=== PATIENT | female | born 1960 | race Caucasian/White ===

== ENCOUNTER 2021-04-21 17:18 | Emergency (ER) | payer BC ==
--- OUTSIDE RECORDS SUMMARY | 2021-04-21 17:22 | XMS REPORT | Continuity of Care Document ---
:1960 Author Organization [facility] t Address [address] [place] [address] Care Team Providers Name Role Phone Shona Luis MD Primary Care Physician Tonya STONE Attending Clinician Unavailable Venkata KU Attending Clinician SHONA LUIS Attending Clinician Unavailable Shona Luis MD Attending Clinician Rad Lewis MD Attending Clinician Payers Payer Name Policy Type Policy Number Effective Date Expiration Date Amber LAWRENCE [employer] [id number] Problems Condition Condition Condition Status Onset Resolution Last Treating Co mments Source Name Details Category Date Date Treatment Clinician Date Environmen Environmen Disease Active [facility] jere and jere and 5 College seasonal seasonal 00:00: of allergies allergies 00 Medi shilo e Panic Panic Disease Active [facility] disorder disorder 06-23 Colleg e 00:00: of 00 Medicin e Diverticul Diverticul Disease Active 2013-02 [facility] osis osis 0-20 College 00:00: of 00 Medicin e Agoraphobi Agoraphobi Disease Active [facility] a with a with 05 College panic panic 00:00: of attacks attacks 00 Medicin e Diplopia Diplopia Disease Active Noello r 05 College 00:00: of 00 Medicin e GERD GERD Disease Active [facility] (gastroeso (gastroeso 10-10 Co llege phageal phageal 00:00: of reflux reflux 00 Medicin disease) disease) e Insomnia Insomnia Disease Active [facility] 9-05 [place] 00:00: of 00 Medicin e Migraine Migraine Disease Active [facility] 905 [place] 00:00: of 00 Medicin e Vertigo Vertigo Disease Active 2006-02 [facility] 2-18 [place] 00:00: of 00 Medicin e Allergies, Adverse Reactions, Alerts Allergy Allergy Status Severity Reaction(s) Onset Inactive Treating Comm ents Source Name Type Date Date Clinician Amitript Propensi Active aggressiv Mabie nancy yline ty to 04-16 e [place] adverse 00:00: behavior of reaction 00 Medicin s to e drug Atenolol Propensi Active Throat [facility] ty to 04-16 tightness [place] [facility] adverse 00:00: of reaction 00 Medicin s to e drug Hydromor Propensi Active [facility] phone ty to 06-23 [place] adverse 00:00: of reaction 00 Medicin s to e drug Predniso Propensi Active [facility] ne ty to 06-23 [place] adverse 00:00: of reaction 00 Medicin s to e drug Ciproflo Propensi Active 2012-02 Other [facility] xacin ty to 02-23 reaction( College adverse 00:00: s): of reaction 00 INSOMNIA, Medic in s to VOMITING e drug Hydromor Propensi Active Severe Blood [facility] phone ty to 10-11 pressure [facility] Hcl adverse 00:00: dropped, of reaction 00 vomitting Medic in s to , cold e drug sweat Social History Social Habit Start Date Stop Date Quantity Comments Source Exposure to Not sure [facility] SARS-CoV-2 (event) of Med icine History [facility] Alcohol Frequency of Medi cine History [facility] Alcohol Std Drinks of Med icine History [facility] Alcohol Binge of Medicine Alcohol Comment 2021-03-29 2021-03-29 occasionally [facility] 00:00:00 00:00:00 of Medicine Cigarettes smoked 2021-03-29 2021-03-29 [facility] current (pack per 00:00:00 00:00:00 of Medi cine day) - Reported Cigarette 2021-03-29 2021-03-29 [facility] pack-years 00:00:00 00:00:00 of Medicine Tobacco Comment 2021-03-29 2021-03-29 social smoker for a [facility] 00:00:00 00:00:00 couple of years of Medici ne have not smoked at all since 1995 Tobacco use and 2021-03-29 2021-03-29 Smokeless tobacco [facility] exposure 00:00:00 00:00:00 non-user of Medicine Alcohol intake 2021-03-29 2021-03-29 Current drinker of [facility] 00:00:00 00:00:00 alcohol (finding) of Medi cine History [facility] 2021-02-23 2021-02-23 1 [facility] Physical Activity 00:00:00 00:00:00 of Medi cine DPW History [facility] 2021-02-23 2021-02-23 2 [facility] Physical Activity 00:00:00 00:00:00 of Medi cine MPS History of tobacco 1995-11-06 Smoker [facility] use 00:00:00 of Medicine Sex Ass[birth year] At [birth year] F [facility] Co llege 00:00:00 00:00:00 of Medicine Smoking Status Start Date Stop Date Source Ex-smoker 2021-03-29 00:00:00 2021-03-29 00:00:00 [facility] ollege of Medicine Never smoked tobacco [facility] ege of Medicine Medications Ordered Filled Start Stop Current Ordering Indication Dosage Frequency Signature Comments Components Source Medication Medication Date Date Medication? Clinician (SIG) Name Name Aspirin 81 Yes 81mg Take 81 mg [facility] MG tablet 2-22 by mouth Colleg e 11:28: once. of Medicin e lansoprazol Yes 30mg Take 1 [facility] 2-22 capsule by [place] [facility] (PREVACID) 00:00: mouth of 30 MG 00 daily. Medicin capsule e azelastine Yes 1{spray 1 [place] by [facility] (ASTELIN) 03-29 } Nasal [place] 0.1 % nasal 00:00: route two o f spray 00 times Medicin daily. Use e in each nostril as directed alprazolam Yes [id number] .5mg Take 1 [facility] (XANAX) 0.5 2-09 Tablet by Col lege MG tablet 00:00: mouth of 00 nightly as Medicin needed for e Anxiety. Aspirin Yes 81mg Take 81 mg [facility] (ASPIRIN 02-24 by mouth [place] [facility] 81) 81 MG 11:10: once. of tablet 13 Medicin e nitroglycer Yes [facility] in 02-24 [place] [facility] (NITROSTAT) 00:00: of 0.4 mg 00 Medicin sublingual e tablet nitroglycer 2021- No [id number] .4mg Place 1 [facility] in 02-24 [facility] (NITROSTAT) 00:00: 05:59 under the of 0.4 mg 00 :00 tongue Medicin sublingual once for [address] one tablet under tongue for chest pain. Repeat every 5 minutes for a total of three pills in 15 minutes PRN persistent chest pain. alprazolam 2020-02 Yes [id number] .5mg Take 1 [facility] (XANAX) 0.5 2-07 Tablet by Col lege MG tablet 00:00: mouth of 00 nightly as Medicin needed for e Anxiety. dicyclomine 2020-02 Yes 10mg Take 1 [facility] (BENTYL) 10 2-07 capsule by Co llege MG capsule 00:00: mouth 2 of 00 times Medicin daily as e needed (abdominal cramping). dicyclomine 2020-02 Yes 10mg Take 1 [facility] (BENTYL) 10 2-07 capsule by Co llege MG capsule 00:00: mouth 2 of 00 times Medicin daily as e needed (abdominal cramping). alprazolam 2020-02 Yes [id number] .5mg Take 1 [facility] (XANAX) 0.5 0-13 Tablet by Col lege MG tablet 00:00: mouth of 00 nightly as Medicin needed for e Anxiety. sumatriptan 2020-02 Yes [id number] 100mg Take 1 [facility] (IMITREX) 0-13 Tablet by Colle ge 100 MG 00:00: mouth of tablet 00 daily as Medicin needed for e Migraine. sumatriptan 2020-02 Yes [id number] 100mg Take 1 [facility] (IMITREX) 0-13 Tablet by Colle ge 100 MG 00:00: mouth of tablet 00 daily as Medicin needed for e Migraine. sumatriptan 2020-02 Yes [id number] 100mg Take 1 [facility] (IMITREX) 0-13 Tablet by Colle ge 100 MG 00:00: mouth of tablet 00 daily as Medicin needed for e Migraine. alprazolam 2020- No [id number] .5mg Take 1 [facility] (XANAX) 0.5 4-16 10-13 Tablet by Co llege MG tablet 00:00: 00:00 mouth of 00 :00 nightly as Medicin needed for e Anxiety. DimenhyDRIN 2019- No Take by Sonali bowden ATE 50 MG 8-25 08-25 mouth. College TABS 16:58: 00:00 of 32 :00 Medicin e sumatriptan 2019- No 25mg Take 25 mg [facility] (IMITREX) 8-25 08-25 by mouth Colle ge 25 MG 16:58: 00:00 once as of tablet 11 :00 needed for Medicin Migraine. e dicyclomine Yes 10mg Take 1 Cap [facility] (BENTYL) 10 8-25 by mouth 2 Co llege MG capsule 00:00: times of 00 daily as Medicin needed e (abdominal cramping). Na Yes [SUPREP] [facility] Sulfate-K 8-25 Take as College Sulfate-Mg 00:00: directed. of Sulf 00 Medicin (SUPREP e BOWEL PREP KIT) 17.5-3.13-1 .6 GM/177ML SOLN dicyclomine Yes 10mg Take 1 Cap [facility] (BENTYL) 10 8-25 by mouth 2 Co llege MG capsule 00:00: times of 00 daily as Medicin needed e (abdominal cramping). Na Yes [SUPREP] [facility] Sulfate-K 8-25 Take as College Sulfate-Mg 00:00: directed. of Sulf 00 Medicin (SUPREP e BOWEL PREP KIT) 17.5-3.13-1 .6 GM/177ML SOLN Na 2021- No [SUPREP] [facility] Sulfate-K 8-25 -20 Take as Colleg e Sulfate-Mg 00:00: 00:00 directed. o f Sulf 00 :00 Medicin (SUPREP e BOWEL PREP KIT) 17.5-3.13-1 .6 GM/177ML SOLN sumatriptan 2020- No [id number] 100mg Take 1 Tab [facility] (IMITREX) 8-25 10-13 by mouth Colle ge 100 MG 00:00: 00:00 daily as of tablet 00 :00 needed for Medicin Migraine. e alprazolam Yes [id number] .5mg Take 1 Tab [facility] (XANAX) 0.5 8-18 by mouth Meera ege MG tablet 00:00: nightly as of 00 needed for Medicin Anxiety. e sumatriptan Yes 25mg Take 25 mg [facility] (IMITREX) 3-12 by mouth Colleg e 25 MG 17:54: once as of tablet 56 needed for Medicin Migraine. e DimenhyDRIN Yes Take by Oleg carter ATE 50 MG 3-12 mouth. College TABS 17:54: of 56 Medicin e alprazolam Yes [id number] .5mg Take 1 Tab [facility] (XANAX) 0.5 3-12 by mouth Meera ege MG tablet 00:00: nightly as of 00 needed for Medicin Anxiety. e sumatriptan Yes [id number] 100mg Take 1 Tab [facility] (IMITREX) 3-12 by mouth Colleg e 100 MG 00:00: daily as of tablet 00 needed for Medicin Migraine. e sumatriptan 2020- No [id number] 100mg Take 1 Tab [facility] (IMITREX) 3-12 08-25 by mouth Colle ge 100 MG 00:00: 00:00 daily as of tablet 00 :00 needed for Medicin Migraine. e alprazolam 2020- No .5mg Take 1 Tab [facility] (XANAX) 0.5 7-01 03-12 by mouth Col lege MG tablet 00:00: 00:00 nightly as o f 00 :00 needed for Medicin Sleep or e Anxiety. Immunizations Ordered Immunization Filled Immunization Date Status Commen ts Source Name Name Highlighter 2020-08-21 Completed [facility] SARS-CoV-2 00:00:00 of Medicine Vaccination Highlighter 2020-08-21 Completed [facility] [place] SARS-CoV-2 00:00:00 of Medicine Vaccination Highlighter 2020-08-21 Completed [facility] [place] [facility] SARS-CoV-2 00:00:00 of Medicine Vaccination Vital Signs Vital Name Observation Time Observation Value Comments Source Body weight 2021-03-29 17:24:00 67.132 kg [facility] BMI 2021-03-29 17:24:00 24.63 kg/m2 [facility] Systolic blood 2021-03-29 17:24:00 136 mm[Hg] [facility] Diastolic blood 2021-03-29 17:24:00 84 mm[Hg] [facility] Heart rate 2021-03-29 17:24:00 80 /min [facility] Body height 2021-03-29 17:24:00 165.1 cm [facility] Systolic blood 2021-02-24 15:57:00 128 mm[Hg] [facility] Diastolic blood 2021-02-24 15:57:00 88 mm[Hg] [facility] Heart rate 2021-02-24 15:57:00 77 /min [facility] Respiratory rate 2021-02-24 15:57:00 16 /min [facility] Body height 2021-02-24 15:57:00 162.6 cm [facility] Body weight 2021-02-24 15:57:00 70.308 kg [facility] BMI 2021-02-24 15:57:00 26.61 kg/m2 [facility] Oxygen saturation in 2021-02-24 15:57:00 98 /min [facility] Arterial blood by [facility] Pulse oximetry Systolic blood 2020-11-17 15:57:00 118 mm[Hg] [facility] Diastolic blood 2020-11-17 15:57:00 68 mm[Hg] [facility] Heart rate 2020-11-17 15:57:00 81 /min [facility] Body temperature 2020-11-17 15:57:00 36.33 Saima [facility] Respiratory rate 2020-11-17 15:57:00 18 /min [facility] Body height 2020-11-17 15:57:00 162.6 cm [facility] Body weight 2020-11-17 15:57:00 68.493 kg [facility] [facility] BMI 2020-11-17 15:57:00 25.92 kg/m2 [facility] ollege of [facility] Oxygen saturation in 2020-11-17 15:57:00 98 /min [facility] Arterial blood by Medicine Pulse oximetry Body height 2019-09-30 16:53:00 162.6 cm [facility] Body weight 2019-09-30 16:53:00 65.499 kg [facility] BMI 2019-09-30 16:53:00 24[facility]79 [facility] Sy[facility] blood 2019-04-17 17:50:00 114 mm[Hg] [facility] pressure Medicine Diastolic blood 2019-04-17 17:50:00 80 mm[Hg] [facility] Medicine Heart rate 2019-04-17 17:50:00 70 /min [facility] ollege of [facility] Body temperature 2019-04-17 17:50:00 36.89 Saima [facility] Respiratory rate 2019-04-17 17:50:00 16 /min [facility] Body height 2019-04-17 17:50:00 162.6 cm [facility] ollege of [facility] Body weight 2019-04-17 17:50:00 69.582 kg [facility] olle of [facility] BMI 2019-04-17 17:50:00 26.33 kg/m2 [facility] Oxygen saturation in 2019-04-17 17:50:00 99 /min [facility] Arterial blood by Medicine Pulse oximetry Procedures Procedure Date / Time Performing Clinician Source Performed DIANNE SCOPE 2021-03-29 19:05:00 Lana Stone [facility] ELECTROCARDIOGRAM COMPLETE 2021-02-24 16:00:00 Gloria Hastings [facility] URINE CULTURE 2019-09-30 20:21:00 Jese Lewis [facility] URINALYSIS AUTO W/SCOPE 2019-09-30 20:21:00 Jese Lewis [facility] Plan of Care Planned Activity Planned Date Details Comments Source Future Scheduled 2021-03-29 TETANUS SHOT (ADULT) [facility] n[facility] [employer] Test 13:26:32 [code = TETANUS SHOT of Medi cine (ADULT)] Future Scheduled 2021-03-29 Hepatitis C screening [employer] Test 13:26:32 (procedure) [code = of Medic ine 937339841] Future Scheduled 2021-03-29 Human immunodeficiency [facility] [employer] Test 13:26:32 virus screening of Medicine (procedure) [code = 322503686] Future Scheduled 2021-03-29 Screening for malignant [facility] College Test 13:26:32 neoplasm of cervix of Medici ne (procedure) [code = 678588965] Future Scheduled 2021-03-29 ZOSTER VACCINE (1 of 2) [facility] College Test 13:26:32 [code = ZOSTER VACCINE of Me dicine (1 of 2)] Future Scheduled 2021-03-29 Screening for malignant [facility] College Test 13:26:32 neoplasm of colon of Medicin e (procedure) [code = 618654064] Future Scheduled 2021-03-29 COVID-19 Vaccine (2 - [employer] Test 13:26:32 Booster for Rodney of Medic ine series) [code = COVID-19 Vaccine (2 - Booster for Rodney series)] Future Scheduled 2021-03-29 Screening for malignant [facility] [employer] Test 13:26:32 neoplasm of breast of Medici ne (procedure) [code = 689056260] Future Scheduled 2021-03-07 TETANUS SHOT (ADULT) [facility]ie nancy [employer] Test 20:29:58 [code = TETANUS SHOT of Medi cine (ADULT)] Future Scheduled 2021-03-07 Hepatitis C screening [employer] Test 20:29:58 (procedure) [code = of Medic ine 262002454] Future Scheduled 2021-03-07 [facility] 20:29:58 virus screening of Medicine (procedure) [code = 671337771] Future Scheduled 2021-03-07 Screening for malignant [facility] College Test 20:29:58 neoplasm of cervix of Medici ne (procedure) [code = 629162967] Future Scheduled 2021-03-07 ZOSTER VACCINE (1 of 2) [facility] [employer] Test 20:29:58 [code = ZOSTER VACCINE of Me dicine (1 of 2)] Future Scheduled 2021-03-07 Screening for malignant [facility] College Test 20:29:58 neoplasm of colon of Medicin e (procedure) [code = 647761247] Future Scheduled 2021-03-07 COVID-19 Vaccine (2 - [employer] Test 20:29:58 Booster for Rodney of Medic ine series) [code = COVID-19 Vaccine (2 - Booster for Rodney series)] Future Scheduled 2021-03-07 BMI FOLLOW UP PLAN [employer] Test 20:29:58 [code = BMI FOLLOW UP of Med icine PLAN] Future Scheduled 2021-03-07 Screening for malignant [facility] College Test 20:29:58 neoplasm of breast of Medici ne (procedure) [code = 811140772] Future Scheduled 2021-02-24 EVENT MONITOR [code = 1 Occurrences [facility] [employer] Test 10:44:47 41867] starting of Medicine 02/24/2021 until 05/25/2021 Future Scheduled 2021-02-24 ELECTROCARDIOGRAM [facility] [employer] Test 09:58:29 COMPLETE [code = 81310] of M edicine Diagnostic Test 2021-02-24 MYOCARD PERFUSION - Expected: [employer] Pending 00:00:00 EXERCISE [code = 51041] 02/24/2021, of M edicine Expires: 08/24/2022 Diagnostic Test 2021-02-24 ECHO, COMPLETE [code = Expected: [employer] Pending 00:00:00 32772] 02/24/2021, of Medicine Expires: 08/24/2021 Future Scheduled 2020-11-17 Screening for malignant [facility] College Test 17:11:08 neoplasm of breast of Medici ne (procedure) [code = 110991233] Future Scheduled 2020-11-17 TETANUS SHOT (ADULT) [facility]ie nancy [employer] Test 17:11:08 [code = TETANUS SHOT of Medi cine (ADULT)] Future Scheduled 2020-11-17 Hepatitis C screening [employer] Test 17:11:08 (procedure) [code = of Medic ine 676041114] Future Scheduled 2020-11-17 Human immunodeficiency [facility] [employer] Test 17:11:08 virus screening of Medicine (procedure) [code = 882820026] Future Scheduled 2020-11-17 Screening for malignant [facility] College Test 17:11:08 neoplasm of cervix of Medici ne (procedure) [code = 052511505] Future Scheduled 2020-11-17 ZOSTER VACCINE (1 of 2) [facility] [employer] Test 17:11:08 [code = ZOSTER VACCINE of Me dicine (1 of 2)] Future Scheduled 2020-11-17 Screening for malignant [facility] [employer] Test 17:11:08 neoplasm of colon of Medicin e (procedure) [code = 801617879] Future Scheduled 2020-11-17 BMI FOLLOW UP PLAN [facility] College Test 17:11:08 [code = BMI FOLLOW UP of Med icine PLAN] Future Scheduled 2020-11-17 CBC W/AUTO DIFF WITH Ordered: [facility]ie n[facility] [employer] Test 11:15:39 PLATELETS [code = 11/17/2020 of Medicin e 28905-9] Future Scheduled 2020-11-17 HEMOGLOBIN A1C [code = Ordered: [facility] [employer] Test 11:15:39 4548-4] 11/17/2020 of Medicine Future Scheduled 2020-11-17 LIPID PANEL [code = Ordered: [facility] Test 11:15:39 65360-7] 11/17/2020 of Medicine Future Scheduled 2020-11-17 MRI BRAIN W WO CONTRAST 1 Occurrences [facility] Test 11:15:39 [code = 04246-7] starting of Medicine 11/17/2020 until 11/17/2021 Future Scheduled 2020-11-17 COMPREHENSIVE METABOLIC Ordered: [facility] Test 11:15:38 PANEL [code = 72904-6] 11/17/2020 of Me dicine Diagnostic Test 2020-11-17 MAMMO 3D SCREENING Expected: [facility] Pending 00:00:00 BILATERAL [code = 11/17/2020, of Medicin e 68898] Expires: 05/18/2022 Diagnostic Test 2019-04-17 MAMMO 3D SCREENING Expected: [facility] Pending 00:00:00 BILATERAL [code = 04/17/2019, of Medicin e 76880] Expires: 10/17/2020 Future Scheduled CBC W/AUTO DIFF WITH Ordered: [facility]ie nancy [employer] Test PLATELETS [code = 04/17/2019 of Medicin e 53144-4] Future Scheduled COMPREHENSIVE METABOLIC Ordered: [facility] Test PANEL [code = 93480-2] 04/17/2019 of Me dicine Future Scheduled HEMOGLOBIN A1C [code = Ordered: [facility] [employer] [facility] 4548-4] 04/17/2019 of Medicine Future Scheduled LIPID PANEL [code = Ordered: [employer] [facility] 66028-6] 04/17/2019 of Medicine Future Scheduled TSH + FREE T4 PROFILE Ordered: [employer] Test [code = NOCPT] 04/17/2019 of Medicine Future Scheduled MAMMOGRAM ANNUAL [code [facility] [employer] [employer] Test = MAMMOGRAM ANNUAL] of Medic ine Future Scheduled TETANUS SHOT (ADULT) [employer] n[facility] [employer] Test [code = TETANUS SHOT of Medi cine (ADULT)] Future Scheduled HEPATITIS C SCREENING [employer] Test [code = HEPATITIS C of Medic ine SCREENING] Future Scheduled HIV SCREENING [code = [employer] [facility] HIV SCREENING] of Medicine Future Scheduled CERVICAL CANCER [facility] C ollege Test SCREENING 3 YEAR FOLLOW of M edicine UP [code = CERVICAL CANCER SCREENING 3 YEAR FOLLOW UP] Future Scheduled COLON CANCER SCREENING: [facility] [employer] Test COLONOSCOPY [code = of Medic ine COLON CANCER SCREENING: COLONOSCOPY] Future Scheduled BMI FOLLOW UP PLAN [facility] r College Test [code = BMI FOLLOW UP of Med icine PLAN] Future Scheduled URINE CULTURE [code = [employer] Test 630-4] of Medicine Future Scheduled MAMMOGRAM ANNUAL [code [facility] [employer] [employer] Test = MAMMOGRAM ANNUAL] of Medic ine Future Scheduled TETANUS SHOT (ADULT) [facility] n[facility] [employer] Test [code = TETANUS SHOT of Medi cine (ADULT)] Future Scheduled HEPATITIS C SCREENING [employer] Test [code = HEPATITIS C of Medic ine SCREENING] Future Scheduled HIV SCREENING [code = [employer] Test HIV SCREENING] of Medicine Future Scheduled CERVICAL CANCER [facility] C ollege Test SCREENING 3 YEAR FOLLOW of M edicine UP [code = CERVICAL CANCER SCREENING 3 YEAR FOLLOW UP] Future Scheduled ZOSTER VACCINE (1 of 2) [facility] College Test [code = ZOSTER VACCINE of Me dicine (1 of 2)] Future Scheduled COLON CANCER SCREENING: [facility] College Test COLONOSCOPY [code = of Medic ine COLON CANCER SCREENING: COLONOSCOPY] Future Scheduled CT ABDOMEN PELVIS W 1 Occurrences [facility] n[facility] [employer] Test CONTRAST [code = starting of Medicine 09005-5] 09/30/2019 until 04/29/2020 Future Scheduled COLONOSCOPY W MAC GI 1 Occurrences [employer] Test DEPT [code = 18341] starting of Medic ine 09/30/2019 until 04/01/2020 Encounters Start End Encounter Admission Attending Care Care Encounter Source Date/Time Date/Time Type Type Clinicians Facility Department ID 2021-03-29 2021-03-29 Office LAURA STONE [id number] [facility] 10:56:51 12:44:42 Visit LANA AMBULATOR [id number] College Y 0.2.7.2.686 of [id number] Medi shilo 800 e 2021-03-10 2021-03-10 Outpatient [facility] [id number] [facility] 10:43:30 16:30:31 Colleg e of Medicin e 2021-03-10 2021-03-10 Outpatient [facility] [id number] [facility] 10:41:34 14:47:35 Colleg e of Medicin e 2021-02-24 2021-02-24 Outpatient [facility] [id number] [facility] 11:28:50 14:28:32 Colleg e of Medicin e 2021-02-24 2021-02-24 Office Vanessaamanda [facility] [id number] [facility] 10:00:00 13:40:51 Visit Mahboob AMBULATOR 350.1.13.21 College Y 0.2.7.2.686 of [id number] Medi shilo 375 e 2021-02-09 2021-02-09 Outpatient GIBSON [facility] [id number] [facility] 13:28:45 13:55:08 JRMatias, ZACK Meera ege of Medicin e 2021-01-13 2021-01-13 Outpatient [facility] [id number] [facility] 10:50:34 13:20:57 Colleg e of Medicin e 2020-11-17 2020-11-17 Office Shona [facility] [id number] [facility] 10:54:55 13:35:53 Visit Zack AMBULATOR 350.1.13.21 College Y 0.2.7.2.686 of [id number] Medi shilo 300 e 2019-09-30 2019-09-30 Office LAZARO Lewis [id number] [facility] 11:50:00 16:47:13 Visit Jese Ali AMBULATOR 350.1.13.21 College Y 0.2.7.2.686 of [id number] Medi shilo 325 e 2019-04-17 2019-04-17 Office LAZARO Gibson [id number] [facility] [facility] 12:27:04 12:57:04 Visit Zack [facility]ATOR [id number] [employer] [facility] [id number] of [phone] [facility] 300 e Results Test Description Test Time Test Comments Results Result Comments Source URINALYSIS AUTO W/SCOPE 2019-10-01 09:12:44 Test Item Value Reference Range Interpretation Comme nts COLOR UA (test code = 5778-6) STRAW YELLOW-STRAW CLARITY UA (test code = 5767-9) CLEAR CLEAR SPECIFIC GRAVITY UA (test code 1.005-1.035 L = 5811-5) LEUKOCYTE ESTERASE UA (test NEGATIVE NEGATIVE code = 5799-2) NITRITE UA (test code = 5802-4) NEGATIVE NEGATIVE PH UA (test code = 5803-2) 5.0-9.0 PROTEIN UA (test code = NEGATIVE NEGATIVE 79424-7) GLUCOSE UA (test code = 5792-7) NEGATIVE NEGATIVE KETONES UA (test code = 5797-6) NEGATIVE NEGATIVE UROBILINOGEN UA (test code = <2.0 See_Comment [Automated message] The ) system which [employer] nerated this result transmit greg reference range: <=2.0 M G/DL. The reference range was not used to interpret th is result as normal/abnormal . BILIRUBIN UA (test code = NEGATIVE NEGATIVE 70-3) OCCULT BLOOD UA (test code = TRACE NEGATIVE A 50679-0) WBC UA (test code = 84908-8) See_Comment [Automated message] The system which [employer] nerated this result transmit greg reference range: 0 - 5 / HPF. The reference range was not used to interpret th is result as normal/abnormal . RBC UA (test code = 42691-3) 0-2 See_Comment [Automated message] The system which [employer] nerated this result transmit greg reference range: 0 - 5 / HPF. The reference range was not used to interpret th is result as normal/abnormal . EPITHELIAL CELLS (test code = See_Comment Unless Otherwise 83769-5) Indicated, All Testing Performed At: Clinical Pathology [facility], [address] [place] [address], [place] [address] Laboratory D irector: Chencho Navarro M.D. CLIA Number [id number] Cap Accreditation N o. [id number] [Automated mess age] The system which generated this result transmitted ref erence range: 0 - 10 /HPF. The reference range was not u sed to interpret this result as normal/abnormal . Lab Interpretation (test code = Abnormal 26082-3) [facility]
[2021-04-21] MEDS ORDERED: NA CHLORIDE 0.9% 1,000 ML ONE (18:02)
[2021-04-21] MEDS ORDERED: FAMOTIDINE 20 MG/2 ML VIAL IV ONE (18:02)
[2021-04-21] MEDS ORDERED: KETOROLAC 30 MG/ML INJ ONE (18:02)
[2021-04-21] MEDS ORDERED: ONDANSETRON 4 MG/2 ML VIAL ONE (18:02)
[2021-04-21 18:13] LABS: Urine Blood Trace-intact (Negative); Urine Glucose Negative (Negative); Urine Protein Negative (Negative); Urine Specific Gravity 1.015 (1.005-1.030)
[2021-04-21 18:18] LABS: Absolute Lymphocytes (CBC) 1.5 K/uL (0.7-4.9); Lymphocytes % 12.8 % (15.3-44.8); MPV 7.5 fL (7.6-11.3); RBC Red Blood Cell Count 4.72 M/uL (3.86-4.86)
[2021-04-21 18:37] LABS: Urine Bacteria <20 /HPF (<20); Urine RBC <5 /HPF (NONE SEEN)
[2021-04-21 18:38] LABS: Albumin 3.5 g/dL (3.4-5.0); Bilirubin Total 0.6 mg/dL (0.2-1.0); Potassium 3.8 mmol/L (3.5-5.1); Protein, Total 7.2 g/dL (6.4-8.2)
--- NOTE | 2021-04-21 19:41 | RAD REPORT ---
EXAM DESCRIPTION: CT - Abdomen Pelvis W Contrast - 04/21/2021 6:53 pm CLINICAL HISTORY: ABD PAIN COMPARISON: No comparisons TECHNIQUE: Biphasic, helical CT imaging of the abdomen and pelvis was performed following 100 ml non -ionic IV contrast. No oral contrast administered. All CT scans are performed using dose optimization technique as appropriate and may include automated exposure control or mA/KV adjustment according to patient size. FINDINGS: No suspicious findings in the lung bases. No cardiomegaly or pericardial effusion. Bilater al breast implants are present. Fibrous capsule calcifications are present. Fluid attenuation is seen between the fibrous capsule of the implant capsule of each implant. Implants are not fully imaged. The liver, spleen, and pancreas show no suspicious findings. Gallbladder and biliary tree are also wi thout suspicious finding. Symmetric renal function is seen with no hydronephrosis or suspicious renal mass. No pyelonephritis o r acute parenchymal process. Numerous simple cysts involve the right kidney, largest 6.2 cm in the up per pole. No suspicious characteristics. No adrenal abnormalities. Urinary bladder is contracted limi ting assessment. No uterine or ovarian acute finding. No stomach or small bowel abnormality. No appendicitis findings. From cecum through descending colon there are no acute colon findings. Patient does have diverticulosis. Proximal sigmoid colon shows cir cumferential wall thickening and edema. There is stranding in the adjacent fat. Patient has numerous diverticula in the sigmoid colon. Trace amount of free fluid seen in the dependent portion of the pel vis. No acute rectal finding. At the site of diverticulitis there is no abnormal extraluminal air con firmed. No abscess or other emergent finding. No hernia, mass or bulky lymphadenopathy. No suspicious bony findings. IMPRESSION: Acute sigmoid diverticulitis without extraluminal air or extravasated bowel content. No abscess or other emergent component.
[2021-04-21] MEDS ORDERED: PIPERACIL/TAZO 3.375 GM VIAL IV ONE (20:05)
[2021-04-21] MEDS ORDERED: NA CHLORIDE 0.9% 100 ML IV ONE (20:05)
--- NOTE | 2021-04-21 21:06 | ER ---
Nurse's Notes [facility] Name: Susan Mcmillan Age: 61 yrs Sex: Female : 1960 Arrival Date: 04/21/2021 Time: 17:22 Bed 25 Private MD: Diagnosis: Diverticulitis of large intestine without perforation or abscess without bleeding Presentation: 04/21 17:29 Chief complaint: Patient states: i have been diagnosed with diverticulitis about 5 tw2 years ago. and i think that is what it is this time. this time seems worse. it goes on the left side and goes around. my stomach feels bloated. nauseated. BM normal yesterday and today. normally the pain starts on my left side but this time its down really low. Coronavirus screen: At this time, the client does not indicate any symptoms associated with coronavirus-19. Ebola Screen: Patient denies travel to an Ebola-affected area in the 21 days before illness onset. 17:29 Method Of Arrival: Ambulatory tw2 17:36 Initial Sepsis Screen: Does the patient meet any 2 criteria? No. Patient's initial tw2 sepsis screen is negative. Does the patient have a suspected source of infection? No. Patient's initial sepsis screen is negative. Risk Assessment: Do you want to hurt yourself or someone else? Patient reports no desire to harm self or others. Onset of symptoms was April 21, 2021. 17:36 Acuity: SUJEY 3 tw2 Triage Assessment: 17:31 General: Appears in no apparent distress. slender, well groomed, Behavior is calm, tw2 cooperative, appropriate for age. Pain: Complains of pain in right lower quadrant and left lower quadrant. GI: Reports lower abdominal pain, nausea. Historical: - Allergies: 17:31 Dilaudid; shaking, vomiting; tw2 - Home Meds: 17:31 alprazolam 0.5 mg Oral tab 1 tab as needed for anxiety [Active]; dicyclomine 10 mg Oral tw2 cap 1 cap as needed [Active]; 17:34 Sumatriptan Sub-Q [Active]; tw2 - PMHx: 17:31 vertigo; tw2 17:34 Migraine; tw2 17:35 Diverticulitis; heart palpitations; tw2 - PSHx: 17:31 section; tw2 - Immunization history:: Adult Immunizations up to date, Client reports receiving the 2nd dose of the Covid vaccine. - Social history:: Smoking status: Patient denies any tobacco usage or history of. Screenin:16 Abuse screen: Denies threats or abuse. Denies injuries from another. Nutritional ld1 screening: No deficits noted. Tuberculosis screening: No symptoms or risk factors identified. Fall Risk None identified. Assessment: 18:16 General: Appears in no apparent distress. uncomfortable, Behavior is calm, cooperative, ld1 appropriate for age. Pain: Complains of pain in abdomen Pain does not radiate. Pain currently is 8 out of 10 on a pain scale. Quality of pain is described as throbbing. Neuro: Level of Consciousness is awake, alert, obeys commands, Oriented to person, place, time, situation. Cardiovascular: Capillary refill < 3 seconds Patient's skin is warm and dry. Respiratory: Airway is patent Respiratory effort is even, unlabored. GI: Abdomen is flat, non-distended, Bowel sounds present X 4 quads. Abd is soft Abdomen is tender to palpation X 4 quads. : No signs and/or symptoms were reported regarding the genitourinary system. EENT: No signs and/or symptoms were reported regarding the EENT system. Derm: No signs and/or symptoms reported regarding the dermatologic system. Musculoskeletal: No signs and/or symptoms reported regarding the musculoskeletal system. 18:47 Reassessment: Patient appears in no apparent distress at this time. No changes from ld1 previously documented assessment. Patient and/or family updated on plan of care and expected duration. Pain level reassessed. Patient states feeling better. Vital Signs: 17:35 BP 149 / 98; Pulse 86; Resp 18; Temp 98.6(TE); Pulse Ox 100% on R/A; Weight 68.49 kg tw2 (R); Height 5 ft. 4 in. (162.56 cm); Pain 8/10; 17:36 Pain 8/10; tw2 20:28 BP 134 / 86; Pulse 79; Resp 20; Pulse Ox 100% on R/A; sf1 17:35 Body Mass Index 25.92 (68.49 kg, 162.56 cm) tw2 ED Course: 17:22 Patient arrived in ED. ds1 17:28 Azeem Mcguire PA is PHCP. cp 17:28 Quintin Gee MD is Attending Physician. cp 17:34 Arm band placed on. tw2 17:36 Triage completed. tw2 17:40 Lucy Faye, RUDDY is Primary Nurse. ld1 18:16 Patient has correct armband on for positive identification. Placed in gown. Bed in low ld1 position. Call light in reach. Side rails up X2. Pulse ox on. NIBP on. Door closed. Noise minimized. Warm blanket given. 18:16 Urine Microscopic Only Sent. ld1 18:16 No provider procedures requiring assistance completed. Inserted saline lock: 20 gauge ld1 in left antecubital area, using aseptic technique. Blood collected. 18:52 CT Abd/Pelvis - IV Contrast Only In Process Unspecified. EDMS 21:06 Attending Physician role handed off by Quintin Gee MD cp 21:06 Eleuterio Shukla MD is Attending Physician. cp 21:37 IV discontinued, intact, bleeding controlled, No redness/swelling at site. Pressure sf1 dressing applied. Administered Medications: 18:15 Drug: NS 0.9% 500 ml Route: IV; Rate: bolus; Site: left antecubital; ld1 18:42 Follow up: Response: No adverse reaction; IV Status: Completed infusion; IV Intake: ld1 500ml 18:15 Drug: Ketorolac 15 mg Route: IVP; Site: left antecubital; ld1 18:42 Follow up: Response: Pain is decreased ld1 18:16 Drug: Pepcid (famotidine) 20 mg Route: IVP; Site: left antecubital; ld1 18:42 Follow up: Response: No adverse reaction ld1 18:16 Drug: Zofran (Ondansetron) 4 mg Route: IVP; Site: left antecubital; ld1 18:42 Follow up: Response: No adverse reaction ld1 18:42 Drug: NS 0.9% 500 ml Route: IV; Rate: 125 ml/hr; Site: left antecubital; ld1 20:10 Drug: Zosyn (piperacillin-tazobactam) 3.375 grams Route: IVPB; Infused Over: 60 mins; sf1 Site: left antecubital; Intake: 18:42 IV: 500ml; Total: 500ml. ld1 Outcome: 21:05 Discharge ordered by . cp 21:37 Discharged to home ambulatory. sf1 21:37 Condition: stable 21:37 Discharge instructions given to patient, Instructed on discharge instructions, follow up and referral plans. Demonstrated understanding of instructions, follow-up care, medications, Prescriptions given X 4. 21:38 Patient left the ED. sf1 Signatures: Dispatcher [employer] EDUT Divina Aldridge ds1 Azeem Mcguire PA PA cp Wise, Tara, RN RN tw2 Lucy Faye RN RN ld1 Anju Pretty RN RN sf1
--- NOTE | 2021-04-21 21:06 | EDPHYS ---
Physician Documentation [facility] Name: Susan Mcmillan Age: 61 yrs Sex: Female : 1960 Arrival Date: 04/21/2021 Time: 17:22 Bed 25 Private MD: ED Physician Eleuterio Shukla HPI: 04/21 17:50 This 61 yrs old Female presents to ER via Ambulatory with complaints of Abdominal Pain. cp 17:50 The patient presents with abdominal pain in the left lower quadrant. Onset: The cp symptoms/episode began/occurred last week, and became worse yesterday. The symptoms radiate to left back. Associated signs and symptoms: Pertinent positives: nausea, Pertinent negatives: blood in stools, chest pain, constipation, diarrhea, dysuria, vomiting. The symptoms are described as constant, crampy. Historical: - Allergies: 17:31 Dilaudid; shaking, vomiting; tw2 - Home Meds: 17:31 alprazolam 0.5 mg Oral tab 1 tab as needed for anxiety [Active]; dicyclomine 10 mg Oral tw2 cap 1 cap as needed [Active]; 17:34 Sumatriptan Sub-Q [Active]; tw2 - PMHx: 17:31 vertigo; tw2 17:34 Migraine; tw2 17:35 Diverticulitis; heart palpitations; tw2 - PSHx: 17:31 section; tw2 - Immunization history:: Adult Immunizations up to date, Client reports receiving the 2nd dose of the Covid vaccine. - Social history:: Smoking status: Patient denies any tobacco usage or history of. ROS: 17:55 Constitutional: Negative for body aches, chills, fever, poor PO intake. cp 17:55 Eyes: Negative for injury, pain, redness, and discharge. cp 17:55 ENT: Negative for ear pain, sore throat, difficulty swallowing, difficulty handling secretions. 17:55 Cardiovascular: Negative for chest pain. 17:55 Respiratory: Negative for cough, shortness of breath, wheezing. 17:55 Abdomen/GI: Positive for abdominal pain, abdominal cramps, Negative for vomiting, diarrhea, constipation, anorexia, black/tarry stool, rectal bleeding. 17:55 Back: Positive for radiated pain, Negative for injury or acute deformity, pain at rest, pain with movement. 17:55 : Negative for urinary symptoms. 17:55 Neuro: Negative for altered mental status, headache, weakness. 17:55 All other systems are negative. Exam: 17:58 Head/Face: Normocephalic, atraumatic. cp 17:58 Constitutional: The patient appears in no acute distress, alert, awake, non-toxic, well developed, well nourished, uncomfortable. 17:58 Eyes: Periorbital structures: appear normal, Conjunctiva: normal, no exudate, no injection, Sclera: no appreciated abnormality, Lids and lashes: appear normal, bilaterally. 17:58 ENT: External ear(s): are unremarkable, Nose: is normal, Mouth: Lips: moist, Oral mucosa: pink and intact, moist, Posterior pharynx: Airway: no evidence of obstruction, patent. 17:58 Chest/axilla: Inspection: normal. 17:58 Cardiovascular: Rate: normal. 17:58 Respiratory: the patient does not display signs of respiratory distress, Respirations: normal, no use of accessory muscles, no retractions, labored breathing, is not present. 17:58 Abdomen/GI: Inspection: abdomen appears normal, Bowel sounds: active, all quadrants, Palpation: soft, in all quadrants, moderate abdominal tenderness, in the suprapubic area and left lower quadrant, rebound tenderness, is not appreciated, voluntary guarding, is not appreciated, involuntary guarding, is not appreciated. 17:58 Back: CVA tenderness, is absent. Vital Signs: 17:35 BP 149 / 98; Pulse 86; Resp 18; Temp 98.6(TE); Pulse Ox 100% on R/A; Weight 68.49 kg tw2 (R); Height 5 ft. 4 in. (162.56 cm); Pain 8/10; 17:36 Pain 8/10; tw2 20:28 BP 134 / 86; Pulse 79; Resp 20; Pulse Ox 100% on R/A; sf1 17:35 Body Mass Index 25.92 (68.49 kg, 162.56 cm) tw2 MDM: 17:39 Patient medically screened. cp 18:00 Differential diagnosis: diverticulitis, non-specific abd pain, Pyelonephritis, cp Ureterolithiasis, urinary tract infection. 21:05 Data reviewed: vital signs, nurses notes, lab test result(s), radiologic studies, CT cp scan. 21:05 Counseling: I had a detailed discussion with the patient and/or guardian regarding: the cp historical points, exam findings, and any diagnostic results supporting the discharge/admit diagnosis, lab results, radiology results, the need for outpatient follow up, a family practitioner, a grommet man, to return to the emergency department if symptoms worsen or persist or if there are any questions or concerns that arise at home. Response to treatment: the patient's symptoms have markedly improved after treatment, VSS. Patient reports pain markedly improved and reports in the past diverticulitis was treated with Augmentin suspension. Patient appears non-toxic. Will discharge to home for continued monitoring. 04/21 17:53 Order name: CBC with Diff; Complete Time: 19:26 cp 04/21 19:26 Interpretation: Normal except: WBC 12.00; MPV 7.5; MARIO% 80.6; LYM% 12.8; NEUT A 9.6. 04/21 17:53 Order name: CMP; Complete Time: 19:26 cp 04/21 17:53 Order name: Lipase; Complete Time: 19:26 cp 04/21 17:53 Order name: Urine Microscopic Only; Complete Time: 19:26 cp 04/21 17:53 Order name: CT Abd/Pelvis - IV Contrast Only; Complete Time: 19:49 cp 04/21 19:51 Interpretation: Report reviewed. cp 04/21 18:13 Order name: Urine Dipstick-Ancillary; Complete Time: 19:26 EDMS 04/21 19:26 Interpretation: Normal except: UKET 1+; UBLD Trace-intact. 04/21 17:53 Order name: IV Saline Lock; Complete Time: 18:15 cp 04/21 17:53 Order name: Labs collected and sent; Complete Time: 18:15 cp 04/21 17:53 Order name: Urine Dipstick-Ancillary (obtain specimen); Complete Time: 18:15 cp 04/21 19:52 Order name: PO challenge; Complete Time: 20:20 cp Administered Medications: 18:15 Drug: NS 0.9% 500 ml Route: IV; Rate: bolus; Site: left antecubital; ld1 18:42 Follow up: Response: No adverse reaction; IV Status: Completed infusion; IV Intake: ld1 500ml 18:15 Drug: Ketorolac 15 mg Route: IVP; Site: left antecubital; ld1 18:42 Follow up: Response: Pain is decreased ld1 18:16 Drug: Pepcid (famotidine) 20 mg Route: IVP; Site: left antecubital; ld1 18:42 Follow up: Response: No adverse reaction ld1 18:16 Drug: Zofran (Ondansetron) 4 mg Route: IVP; Site: left antecubital; ld1 18:42 Follow up: Response: No adverse reaction ld1 18:42 Drug: NS 0.9% 500 ml Route: IV; Rate: 125 ml/hr; Site: left antecubital; ld1 20:10 Drug: Zosyn (piperacillin-tazobactam) 3.375 grams Route: IVPB; Infused Over: 60 mins; sf1 Site: left antecubital; Disposition: 04/22 07:38 Co-signature as Attending Physician, Eleuterio Shukla MD I agree with the assessment and kdr plan of care. Disposition Summary: 04/21/21 21:05 Discharge Ordered Location: Home cp Problem: new cp Symptoms: have improved cp Condition: Stable cp Diagnosis - Diverticulitis of large intestine without perforation or abscess without bleeding cp Followup: cp - With: Private Physician - When: 2 - 3 days - Reason: Recheck today's complaints Discharge Instructions: - Discharge Summary Sheet cp - High-Fiber Diet cp - Diverticulitis cp Forms: - Medication Reconciliation Form cp - Thank You Letter cp - Antibiotic Education cp - Prescription Opioid Use cp Prescriptions: - Zofran 4 mg Oral Tablet - take 1 tablet by ORAL route every 12 hours As needed; 20 tablet; Refills: 0, cp Product Selection Permitted - ketorolac 10 mg Oral tablet - take 1 tablet by ORAL route every 6 hours not to exceed 40 mg in 24hrs; 15 cp tablet; Refills: 0, Product Selection Permitted - Tramadol 50 mg Oral Tablet - take 1 tablet by ORAL route every 8 hours as needed; 12 tablet; Refills: 0, cp Product Selection Permitted - Augmentin ES-600 600-42.9 mg/5 mL Oral Suspension for Reconstitution - take 7.2 milliliters by ORAL route every 12 hours for 10 days Max = 875mg/dose; cp 150 milliliter; Refills: 0, Product Selection Permitted Signatures: Dispatcher [employer] EDJunior Valientein, MD MD kdr Azeem Mcguire PA PA cp Wise, Tara RN RN tw2 Lucy Faye RN RN ld1 Anju Pretty RN RN sf1
[2021-04-21 22:51] VITALS: TEMP 98.6; O2SAT 100
[2021-04-21 22:53] VITALS: BP 134/86
== END 2021-04-21 21:38 | disposition home or self-care (01) ==
LOC: ER 17:18
DX: K57.32 Diverticulitis of large intestine without perforation or abscess without bleeding (principal); F41.9 Anxiety disorder, unspecified; Z88.8 Allergy status to other drugs, medicaments and biological substances
CPT/HCPCS: 85025; 36415; 83690; 80053; 74177; 96375; 96374; 99284; Q9967; J2543; J7040; J2405; 81003; 81015